=== PATIENT | female | born 1940 | race Caucasian/White ===

== ENCOUNTER → 2016-05-17 | Outpatient (CLI) | payer MEDICARE, BC | LOC: GMAM 12:26 | PROVIDERS: ATTEND Family Medicine | DX: I26.99 Other pulmonary embolism without acute cor pulmonale (principal); Z79.01 Long term (current) use of anticoagulants ==

== ENCOUNTER → 2016-10-12 | Outpatient (CLI) | payer MEDICARE, BC ==
--- NOTE | 2016-10-13 00:11 | US ---
PROCEDURE: Venous,Lower Extremity LT CLINICAL HISTORY and INDICATION: Left leg swelling. Evaluation for deep vein thrombosis COMPARISON: None. TECHNIQUE: Carbajal scale imaging with duplex interrogation of the left lower extremity venous system was performed and multiple static images were obtained. FINDINGS: Utilizing compression and augmentation, there is no deep venous thrombus in the common femoral, superficial femoral or popliteal veins. The posterior tibial and deep peroneal veins are patent and compressible. . The greater saphenous vein at the saphenofemoral junction is patent and compressible. There is no visualization of any subcutaneous fluid collections. There is no visualization of any fluid collections in the left popliteal fossa. There is no evidence of reactive or pathological lymphadenopathy in the evaluated left lower extremity. IMPRESSION: No deep venous thrombosis of the left lower extremity. Location of Interpretation: [id number] Electronically signed by: Michael Sosa MD 10/13/2016 12:10 AM CDT Workstation: [id number]
== END | disposition home or self-care (01) ==
LOC: US 13:00
PROVIDERS: ATTEND Orthopaedic Surgery Sports Medicine
DX: R60.0 Localized edema (principal); Z98.890 Other specified postprocedural states

== ENCOUNTER → 2017-07-04 | Outpatient (CLI) | payer MEDICARE, BC | LOC: LAB.O 12:09 | PROVIDERS: ATTEND Internal Medicine Critical Care Medicine | DX: I26.99 Other pulmonary embolism without acute cor pulmonale (principal) ==

== ENCOUNTER 2017-10-07 20:59 | Emergency (ER) | payer MEDICARE, BC ==
--- NOTE | 2017-10-07 21:47 | RAD ---
EXAM DESCRIPTION: Chest,1 View CLINICAL HISTORY:76 years Female, dyspnea Comparison: July 15, 2014 FINDINGS: No focal lung consolidation. No pleural effusion. No pneumothorax. Median sternotomy wires. Enlarged cardiac silhouette with mild vascular congestion. No acute osseous abnormality. Soft tissues are unremarkable. IMPRESSION: Enlarged cardiac silhouette with mild vascular congestion. No focal lung consolidation. Electronically signed by: Nathan Proctor MD 10/07/2017 9:46 PM CDT
--- NOTE | 2017-10-07 22:00 | ED.PDOC ---
History of Present Illness - General Chief Complaint: Post Op Problems Stated Complaint: Post Op Fever Time Seen by Provider: 10/07/17 21:18 Source: patient, family Exam Limitations: no limitations - History of Present Illness Initial Comments: Carla Sargent 76 y/o female brought by EMS after son noticed that she had been shivering and temperature was taken showedT-101 oral and on EMS arrival noted her SAO2-59 and was given o2/NC.After she was transported and moved to the ER bed O2 was taken out and noted she desaturated to 71 %.It was also noted that she had slept all day.No chest pains ,no cough ,no dysuria.Had right knee surgery 05 October 2017 in [id number].She was discharge yesterday and was on Lovenox for 3 days and Xarelto started today. Timing/Duration: 1-3 hours Severity: moderate Improving Factors: nothing Worsening Factors: nothing Associated Symptoms: fever/chills Allergies/Adverse Reactions: Allergies Sulfa Antibiotics Allergy (Unknown, Verified 10/07/17 21:21) Review of Systems - Review of Systems Constitutional: States: fever EENTM: States: no symptoms reported Respiratory: States: no symptoms reported Cardiology: States: no symptoms reported Gastrointestinal/Abdominal: States: no symptoms reported Genitourinary: States: no symptoms reported Musculoskeletal: States: no symptoms reported Skin: States: no symptoms reported Neurological: States: no symptoms reported All other Systems: Reviewed and Negative, No Change from Baseline Past Medical History (General) - Patient Medical History Hx Seizures: No Hx Stroke: No Hx Dementia: No Hx Asthma: No Hx of COPD: No Hx Cardiac Disorders: Yes - aortic valve replacement Hx Congestive Heart Failure: No Hx Pacemaker: No Hx Hypertension: No Hx Thyroid Disease: No Hx Diabetes: No Hx Gastroesophageal Reflux: No Hx Renal Disease: No Hx Cancer: No Hx of HIV: No Hx Hepatitis C: No Hx MRSA: No Hx Other PMH: Yes - pulmonary embolus-2017 Surgical History: cholecystectomy - c-spine fusion, other - aortic valve replacement;bilateral knee surgery - Vaccination History Hx Tetanus, Diphtheria Vaccination: Yes Hx Influenza Vaccination: Yes Hx Pneumococcal Vaccination: Yes Immunizations Up to Date: Yes - Social History Hx Tobacco Use: No Hx Alcohol Use: No Hx Substance Use: No Hx Depression: No Feels Threatened In Home Enviroment: No Feels Threatened In a Relationship: No Hx Physical Abuse: No Hx Emotional Abuse: No Hx Suspected Abuse: No - Activities of Daily Living Hospice Agency (if applicable):: None - Female History Patient is a Female of Child Bearing Age (10 -59 yrs old): No - Triage Comment ED Triage Comment: Pt had right total knee replacement four days ago in [place]. Pt started feeling worse today and running a fever. Temperature 101.7 upon arrival. Family Medical History - Family History Mother Living Status: Hx Family;Other: CAD Physical Exam - Physical Exam General Appearance: Alert, Comfortable, No apparent distress Eye Exam: bilateral normal Ears, Nose, Throat: hearing grossly normal, normal ENT inspection Neck: full range of motion, supple Respiratory: no respiratory distress, decreased breath sounds Cardiovascular/Chest: regular rate, rhythm, no gallop, systolic murmur - g 3/6 Peripheral Pulses: radial,right: 2+, radial,left: 2+ Gastrointestinal/Abdominal: non tender, soft, no organomegaly Back Exam: no CVA tenderness, no vertebral tenderness Extremity: no pedal edema, no calf tenderness, other - surgical incision site clear no drainage,no erythema right knee Neurologic: alert, oriented x 3 Skin Exam: normal color, warm/dry Progress - Progress Progress: 10/07/17 22:09 Vital Signs - 8 hr 10/07/17 21:05 Temperature 101.7 F H Pulse Rate [ 118 H Monitor] Respiratory 20 Rate Blood Pressure 127/63 [Left Arm] O2 Sat by Pulse 95 Oximetry - Results/Orders Results/Orders: 10/07/17 21:15 EKG STAT 10/07/17 21:30 BLOOD CULTURE Stat 10/07/17 22:00 CARDIAC ENZYME GROUP Stat 10/07/17 23:24 CTA Chest [CT] Stat Laboratory Results - last 24 hr 10/07/17 10/07/17 10/07/17 21:30 21:30 21:30 WBC 5.4 RBC 3.77 L Hgb 11.9 L Hct 34.9 L MCV 92.5 MCH 31.5 H MCHC 34.0 RDW 13.8 Plt Count 126 L MPV 10.0 Absolute Neuts (auto) 4.10 Absolute Lymphs (auto) 0.30 L Absolute Monos (auto) 0.70 Absolute Eos (auto) 0.20 Absolute Basos (auto) 0.00 Neutrophils % 76.1 Lymphocytes % 6.2 L Monocytes % 13.4 H Eosinophils % 3.6 Basophils % 0.7 PT 10.7 INR 1.07 PTT (SP) 30.1 D-Dimer, Quantitative 1.81 H* pCO2 pO2 HCO3 ABG pH ABG O2 Saturation ABG Base Excess ABG Deoxyhemoglobin Oxyhemoglobin % Carboxyhemoglobin % Methemoglobin % Sat Calc Total Hemoglobin Sodium 140 Potassium 5.0 Chloride 106 Carbon Dioxide 28 Anion Gap 11.0 L BUN 17 Creatinine 0.86 BUN/Creatinine Ratio 19.8 Random Glucose 108 H Serum Osmolality 281.5 Lactic Acid Calcium 8.9 Total Bilirubin 1.0 AST 45 H ALT 29 Alkaline Phosphatase 77 Creatine Kinase CK-MB (CK-2) Troponin I Serum Total Protein 6.8 Albumin 3.3 Globulin 3.5 Albumin/Globulin Ratio 0.9 L Urine Color Urine Appearance Urine pH Ur Specific [place] Urine Protein Urine Glucose (UA) Urine Ketones Urine Blood Urine Nitrite Urine Bilirubin Urine Urobilinogen Ur Leukocyte Esterase Urine RBC Urine WBC Ur Epithelial Cells Urine Bacteria 10/07/17 10/07/17 10/07/17 21:30 22:00 22:00 WBC RBC Hgb Hct MCV MCH MCHC RDW Plt Count MPV Absolute Neuts (auto) Absolute Lymphs (auto) Absolute Monos (auto) Absolute Eos (auto) Absolute Basos (auto) Neutrophils % Lymphocytes % Monocytes % Eosinophils % Basophils % PT INR PTT (SP) D-Dimer, Quantitative pCO2 36 pO2 70 L HCO3 23.7 ABG pH 7.440 ABG O2 Saturation 97.0 ABG Base Excess 0.3 ABG Deoxyhemoglobin 2.9 Oxyhemoglobin % 94.8 Carboxyhemoglobin % 0.5 Methemoglobin % Sat 1.8 H Calc Total Hemoglobin 10.7 L Sodium Potassium Chloride Carbon Dioxide Anion Gap BUN Creatinine BUN/Creatinine Ratio Random Glucose Serum Osmolality Lactic Acid 1.5 Calcium Total Bilirubin AST ALT Alkaline Phosphatase Creatine Kinase 165 H CK-MB (CK-2) 0.9 Troponin I 0.06 H Serum Total Protein Albumin Globulin Albumin/Globulin Ratio Urine Color Urine Appearance Urine pH Ur Specific [place] Urine Protein Urine Glucose (UA) Urine Ketones Urine Blood Urine Nitrite Urine Bilirubin Urine Urobilinogen Ur Leukocyte Esterase Urine RBC Urine WBC Ur Epithelial Cells Urine Bacteria 10/07/17 22:45 WBC RBC Hgb Hct MCV MCH MCHC RDW Plt Count MPV Absolute Neuts (auto) Absolute Lymphs (auto) Absolute Monos (auto) Absolute Eos (auto) Absolute Basos (auto) Neutrophils % Lymphocytes % Monocytes % Eosinophils % Basophils % PT INR PTT (SP) D-Dimer, Quantitative pCO2 pO2 HCO3 ABG pH ABG O2 Saturation ABG Base Excess ABG Deoxyhemoglobin Oxyhemoglobin % Carboxyhemoglobin % Methemoglobin % Sat Calc Total Hemoglobin Sodium Potassium Chloride Carbon Dioxide Anion Gap BUN Creatinine BUN/Creatinine Ratio Random Glucose Serum Osmolality Lactic Acid Calcium Total Bilirubin AST ALT Alkaline Phosphatase Creatine Kinase CK-MB (CK-2) Troponin I Serum Total Protein Albumin Globulin Albumin/Globulin Ratio Urine Color Yellow Urine Appearance Clear Urine pH 5.5 Ur Specific [place] 1.015 Urine Protein Negative Urine Glucose (UA) Negative Urine Ketones Negative Urine Blood Trace-lysed H Urine Nitrite Negative Urine Bilirubin Negative Urine Urobilinogen 0.2 Ur Leukocyte Esterase Negative Urine RBC 3-5 H Urine WBC 1-3 Ur Epithelial Cells 1-3 Urine Bacteria Rare 10/07/17 21:15 EKG STAT 10/07/17 21:30 BLOOD CULTURE Stat 10/07/17 22:00 CARDIAC ENZYME GROUP Stat 10/08/17 00:59 Piperacillin/Tazobactam [Zosyn] 4.5 gm Sodium Chloride 0.9% 100Ml [NS (NACL 0.9%) 100ml] 100 ml IVPB ONCE Laboratory Results - last 24 hr 10/07/17 10/07/17 10/07/17 21:30 21:30 21:30 WBC 5.4 RBC 3.77 L Hgb 11.9 L Hct 34.9 L MCV 92.5 MCH 31.5 H MCHC 34.0 RDW 13.8 Plt Count 126 L MPV 10.0 Absolute Neuts (auto) 4.10 Absolute Lymphs (auto) 0.30 L Absolute Monos (auto) 0.70 Absolute Eos (auto) 0.20 Absolute Basos (auto) 0.00 Neutrophils % 76.1 Lymphocytes % 6.2 L Monocytes % 13.4 H Eosinophils % 3.6 Basophils % 0.7 PT 10.7 INR 1.07 PTT (SP) 30.1 D-Dimer, Quantitative 1.81 H* pCO2 pO2 HCO3 ABG pH ABG O2 Saturation ABG Base Excess ABG Deoxyhemoglobin Oxyhemoglobin % Carboxyhemoglobin % Methemoglobin % Sat Calc Total Hemoglobin Sodium 140 Potassium 5.0 Chloride 106 Carbon Dioxide 28 Anion Gap 11.0 L BUN 17 Creatinine 0.86 BUN/Creatinine Ratio 19.8 Random Glucose 108 H Serum Osmolality 281.5 Lactic Acid Calcium 8.9 Total Bilirubin 1.0 AST 45 H ALT 29 Alkaline Phosphatase 77 Creatine Kinase CK-MB (CK-2) Troponin I B-Natriuretic Peptide Serum Total Protein 6.8 Albumin 3.3 Globulin 3.5 Albumin/Globulin Ratio 0.9 L Urine Color Urine Appearance Urine pH Ur Specific [place] Urine Protein Urine Glucose (UA) Urine Ketones Urine Blood Urine Nitrite Urine Bilirubin Urine Urobilinogen Ur Leukocyte Esterase Urine RBC Urine WBC Ur Epithelial Cells Urine Bacteria 10/07/17 10/07/17 10/07/17 21:30 22:00 22:00 WBC RBC Hgb Hct MCV MCH MCHC RDW Plt Count MPV Absolute Neuts (auto) Absolute Lymphs (auto) Absolute Monos (auto) Absolute Eos (auto) Absolute Basos (auto) Neutrophils % Lymphocytes % Monocytes % Eosinophils % Basophils % PT INR PTT (SP) D-Dimer, Quantitative pCO2 36 pO2 70 L HCO3 23.7 ABG pH 7.440 ABG O2 Saturation 97.0 ABG Base Excess 0.3 ABG Deoxyhemoglobin 2.9 Oxyhemoglobin % 94.8 Carboxyhemoglobin % 0.5 Methemoglobin % Sat 1.8 H Calc Total Hemoglobin 10.7 L Sodium Potassium Chloride Carbon Dioxide Anion Gap BUN Creatinine BUN/Creatinine Ratio Random Glucose Serum Osmolality Lactic Acid 1.5 Calcium Total Bilirubin AST ALT Alkaline Phosphatase Creatine Kinase 165 H CK-MB (CK-2) 0.9 Troponin I 0.06 H B-Natriuretic Peptide Serum Total Protein Albumin Globulin Albumin/Globulin Ratio Urine Color Urine Appearance Urine pH Ur Specific [place] Urine Protein Urine Glucose (UA) Urine Ketones Urine Blood Urine Nitrite Urine Bilirubin Urine Urobilinogen Ur Leukocyte Esterase Urine RBC Urine WBC Ur Epithelial Cells Urine Bacteria 10/07/17 10/07/17 22:00 22:45 WBC RBC Hgb Hct MCV MCH MCHC RDW Plt Count MPV Absolute Neuts (auto) Absolute Lymphs (auto) Absolute Monos (auto) Absolute Eos (auto) Absolute Basos (auto) Neutrophils % Lymphocytes % Monocytes % Eosinophils % Basophils % PT INR PTT (SP) D-Dimer, Quantitative pCO2 pO2 HCO3 ABG pH ABG O2 Saturation ABG Base Excess ABG Deoxyhemoglobin Oxyhemoglobin % Carboxyhemoglobin % Methemoglobin % Sat Calc Total Hemoglobin Sodium Potassium Chloride Carbon Dioxide Anion Gap BUN Creatinine BUN/Creatinine Ratio Random Glucose Serum Osmolality Lactic Acid Calcium Total Bilirubin AST ALT Alkaline Phosphatase Creatine Kinase CK-MB (CK-2) Troponin I B-Natriuretic Peptide 476.0 H* Serum Total Protein Albumin Globulin Albumin/Globulin Ratio Urine Color Yellow Urine Appearance Clear Urine pH 5.5 Ur Specific [place] 1.015 Urine Protein Negative Urine Glucose (UA) Negative Urine Ketones Negative Urine Blood Trace-lysed H Urine Nitrite Negative Urine Bilirubin Negative Urine Urobilinogen 0.2 Ur Leukocyte Esterase Negative Urine RBC 3-5 H Urine WBC 1-3 Ur Epithelial Cells 1-3 Urine Bacteria Rare - EKG/XRAY/CT EKG: Sinus, Tachy Comments: HR-114 CT Ordered: Yes CT Interpretation Call Back: Yes - NO PE;opacities/atelectasis Departure - Departure Clinical Impression: Hypoxemia, NSTEMI (non-ST elevated myocardial infarction) Fever Qualifiers: Fever type: post-procedural Qualified Code(s): R50.82 - Postprocedural fever Pneumonia Qualifiers: Pneumonia type: due to unspecified organism Laterality: unspecified laterality Lung location: unspecified part of lung Qualified Code(s): J18.9 - Pneumonia, unspecified organism Time of Disposition: 01:03 Disposition: Transfer to Hospital Condition: Fair Departure Forms: Patient Portal Self Enrollment Referrals: Margarito Mike MD [Primary Care Provider] - 1-2 Weeks Transfer to Outside Facility - Transfer Information Accepting Provider:: d/w Accepting Facility: [facility] 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
[2017-10-07] MEDS ORDERED: ACETAMINOPHEN 325 MG TAB PO ONE (22:10)
[2017-10-07 23:42] VITALS: O2SAT 100
--- NOTE | 2017-10-08 00:38 | CT ---
EXAM DESCRIPTION: CTA Chest CLINICAL HISTORY: 76 years, Female, Possible PE COMPARISON: None. TECHNIQUE: Axial images through the chest were performed after the administration of intravenous contrast using a pulmonary embolus protocol. MIPS were performed. This exam was performed according to our departmental dose-optimization program which includes use of Automated Exposure Control, adjustment of the mA and/or kV according to patient size and/or use of iterative reconstruction technique. FINDINGS: No central or segmental pulmonary embolus. Suboptimal opacification of subsegmental branches.Normal caliber aorta without dissection. Scattered atherosclerotic calcifications No pericardial effusion. Mild cardiomegaly No pleural effusion. Scattered areas of groundglass and patchy opacities may represent atelectasis, pulmonary edema and/or pneumonia No pneumothorax. Patent central airway. Soft tissues are unremarkable. No acute osseous findings. No acute abnormality within the visualized upper abdomen. Cholecystectomy. Splenic cyst IMPRESSION: * No central or segmental pulmonary embolus. * Scattered areas of groundglass and patchy opacities may represent atelectasis, pulmonary edema and/or pneumonia Electronically signed by: Nathan Proctor MD 10/08/2017 12:36 AM CDT
[2017-10-08 00:53] VITALS: BP 134/70; TEMP 99.9
[2017-10-08] MEDS ORDERED: PIPERACILLIN/TAZOBACTAM 4.5 GM in SODIUM CHLORIDE 0.9% 100ML 100 ML IVPB ONE (00:59)
[2017-10-08] MEDS ORDERED: SODIUM CHLORIDE 0.9% 100ML 100 ML IVPB ONE (01:04)
[2017-10-08] MEDS ORDERED: PIPERACILLIN/TAZOBACTAM 2.25 GM VIAL IVPB ONE (01:04)
[2017-10-08] MEDS ORDERED: fentaNYL CITRATE INJ 50 MCG/ML AMP IV ONE (01:10)
== END 2017-10-08 01:53 | disposition short-term general hospital (02) ==
LOC: ER 20:59
DX: I21.4 Non-ST elevation (NSTEMI) myocardial infarction (principal); J95.89 Other postprocedural complications and disorders of respiratory system, not elsewhere classified; R09.02 Hypoxemia; R00.0 Tachycardia, unspecified; Z96.651 Presence of right artificial knee joint; Z95.2 Presence of prosthetic heart valve; Z86.711 Personal history of pulmonary embolism; Z88.2 Allergy status to sulfonamides
CPT/HCPCS: 36415; 36600; 71045; 71275; 80053; 81001; 82550; 82553; 82803; 82805; 83605; 83880; 84484; 85025; 85379; 85610; 85730; 87040; 93005; J2543; J3010; J7050

== ENCOUNTER → 2018-03-20 | Outpatient (CLI) | payer MEDICARE, BC | LOC: GMAM 16:38 | PROVIDERS: ATTEND Family Medicine | DX: R07.89 Other chest pain (principal); I26.99 Other pulmonary embolism without acute cor pulmonale ==